=== PATIENT | male | born 1985 | race Caucasian/White ===

== ENCOUNTER 2020-03-30 16:25 | Emergency (ER) | payer MEDICAID ==
[~2020-03-30] VITALS: Ht 177.8 cm; Wt 104.0 kg
[2020-03-30 16:34] VITALS: BP 111/77
--- NOTE | 2020-03-30 16:39 | NUR ---
PT IS WAITING QUIETLY TO BE EVALUATED BY PROVIDER
[2020-03-30] MEDS ORDERED: ondansetron 4mg rapidly disintigrating tab PO ONE (17:05)
[2020-03-30] MEDS ORDERED: sulfamethoxazole/trimethoprim DS (800/160mg) tablet PO ONE (17:05)
[2020-03-30] MEDS ORDERED: buprenorphine/naloxone 8MG-2MG SUBlingual film SL ONE (17:10)
[2020-03-30] MEDS ORDERED: SULF1TAB49 PO (17:12)
--- NOTE | 2020-03-30 17:28 | NUR ---
gave pt sandwich, wash basin to clean self, pt also has info regarding suboxone clinic, where to get a shower etc.
--- NOTE | 2020-03-30 18:00 | NUR ---
PT SAID HE COULD NOT WALK "I HAVE CHRONIC PAIN AND BACK SURGERY", PT IS THEN STOOD UP, PUT SANDALS ON AND AMB WITH STEADY GAIT TO LOBBY, OFFERED PT TAXI RIDE TO [facility], PT REFUSED
== END 2020-03-30 17:31 | disposition home or self-care (01) ==
LOC: ER 16:25
DX: L03.115 Cellulitis of right lower limb (principal); F15.90 Other stimulant use, unspecified, uncomplicated; F11.90 Opioid use, unspecified, uncomplicated; Z72.89 Other problems related to lifestyle; Z79.2 Long term (current) use of antibiotics
CPT/HCPCS: 99283; 99284

== ENCOUNTER 2020-04-24 01:51 | Emergency (ER) | payer MEDICAID ==
[~2020-04-24] VITALS: Ht 177.8 cm; Wt 97.7 kg
[2020-04-24] MEDS ORDERED: normal saline 1000ml 1,000 ML IV ONE (02:10)
[2020-04-24] MEDS ORDERED: ondansetron/PF 4mg/2ml inj IV ONE (02:10)
[2020-04-24] MEDS ORDERED: famotidine/PF 10 mg/ml inj IV ONE (02:10)
[2020-04-24] MEDS ORDERED: pantoprazole 40 MG vial IV ONE (02:10)
[2020-04-24] MEDS ORDERED: normal saline 1000ML IV soln IVB ONE (02:10)
[2020-04-24] MEDS ORDERED: bisacodyl 5mg tablet.DR PO ONE (02:10)
[2020-04-24 02:29] LABS: BASOPHILS # (AUTO) 0.1 X10'3 (0-0.2); BASOPHILS % (AUTO) 0.5 % (0-1); EOSINOPHILS # (AUTO) 0.3 X10'3 (0-0.9); EOSINOPHILS % (AUTO) 2.4 % (0-6); HEMATOCRIT 45.9 % (42.0-52.0); HEMOGLOBIN 15.1 g/dl (14.0-17.9); LYMPHOCYTES # (AUTO) 2.1 X10'3 (1.1-4.8); LYMPHOCYTES % (AUTO) 19.2 % (21-51); MEAN CORPUSCULAR HEMOGLOBIN 29.1 PG (27.0-31.0); MEAN CORPUSCULAR HGB CONC 32.9 g/dL (33.0-36.5); MEAN CORPUSCULAR VOLUME 88.5 FL (78-98); MEAN PLATELET VOLUME 7.3 FL (7.4-10.4); MONOCYTES # (AUTO) 1.1 X10'3 (0-0.9); NEUTROPHILS # (AUTO) 7.6 X10'3 (1.8-7.7); NEUTROPHILS % (AUTO) 67.9 % (42-75); PLATELET COUNT 232 X10'3 (140-440); RED BLOOD COUNT 5.18 X10'6 (4.70-6.10); RED CELL DISTRIBUTION WIDTH 15.6 % (11.5-14.5); WHITE BLOOD COUNT 11.2 X10'3 (4.5-11.0)
[2020-04-24 02:30] LABS: CLARITY,URINE CLEAR (Clear); COLOR,URINE YELLOW (Yellow); GLUCOSE, URINE 100 mg/dl (Neg); KETONES,URINE NEGATIVE (Neg); LEUKOCYTE ESTERASE ,URINE NEGATIVE (Neg); NITRITES, URINE NEGATIVE (Neg); OCCULT BLOOD,URINE NEGATIVE (Neg); PROTEIN,URINE NEGATIVE (Neg)
[2020-04-24 02:32] LABS: UA COLLECTION TYPE CLN CATCH MIDSTREAM
[2020-04-24 02:44] LABS: URINE AMPHETAMINE SCREEN POSITIVE (Neg); URINE BARBITUATE SCREEN NEGATIVE (Neg); URINE BENZODIAZEPINES SCREEN NEGATIVE (Neg); URINE CANNABINOID SCREEN POSITIVE (Neg); URINE COCAINE SCREEN NEGATIVE (Neg); URINE METHADONE SCREEN NEGATIVE (Neg); URINE OPIATE SCREEN NEGATIVE (Neg); URINE PHENCYCLIDINE SCREEN NEGATIVE (Neg)
[2020-04-24 02:45] LABS: ALBUMIN 3.2 G/DL (3.4-5.0); ANION GAP 8 (8-16); BILIRUBIN,TOTAL 0.5 MG/DL (0.1-1.0); BLOOD UREA NITROGEN 10 MG/DL (7-18); BUN/CREATININE RATIO 8.8 (5.4-32.0); CALCIUM 8.1 MG/DL (8.5-10.1); CHLORIDE 103 MMOL/L (99-107); CREATININE 1.13 MG/DL (0.60-1.10); GLUCOSE 153 MG/DL (70-104); POTASSIUM 3.3 MMOL/L (3.5-5.1); SODIUM 136 MMOL/L (135-145); TOTAL CARBON DIOXIDE 25.5 MMOL/L (24-32); TOTAL PROTEIN 7.9 G/DL (6.4-8.2); eGFR 75 ML/MIN
[2020-04-24 02:46] LABS: ALANINE AMINOTRANSFERASE 29 U/L (12-78); ALBUMIN/GLOBULIN RATIO 0.7 (1.1-1.5); ALKALINE PHOSPHATASE 120 IU/L (46-116); ASPARTATE AMINO TRANSFERASE 19 U/L (10-37); LIPASE 261 U/L (73-393)
[2020-04-24 02:50] LABS: ETHANOL < 0.010 GM/DL (0.0-0.010)
[2020-04-24] MEDS ORDERED: buprenorphine/naloxone 8MG-2MG SUBlingual film SL ONE (02:50)
[2020-04-24] MEDS ORDERED: ONDA8TAB6 PO (02:57)
[2020-04-24] MEDS ORDERED: BISA-78 PO (03:02)
[2020-04-24] MEDS ORDERED: proCHLORperazine 10 MG/2 ml inj IV PRN (03:10)
[2020-04-24] MEDS ORDERED: ketorolac trometh. 30mg/ml inj. IV ONE (03:10)
[2020-04-24] MEDS ORDERED: acetaminophen 325mg tablet PO ONE (03:10)
--- NOTE | 2020-04-24 03:10 | NUR ---
PT GETTING PREPARED FOR DISCHARGE, PT REPORT[facility] 9/10 HEADACHE. [facility] ORDER RECEIVED FOR COMPAZINE 5MG IV X1 DOSE, TORADOL 15MG IV X1 DOSE, AND TYLENOL 650MG X1 DOSE. ORDERS PLACED AND COMPLETED.
[2020-04-24 03:44] VITALS: BP 109/65
== END 2020-04-24 03:27 | disposition home or self-care (01) ==
LOC: ER 01:52
DX: F11.23 Opioid dependence with withdrawal (principal); R11.2 Nausea with vomiting, unspecified; F15.90 Other stimulant use, unspecified, uncomplicated; Z72.89 Other problems related to lifestyle; Z98.890 Other specified postprocedural states
CPT/HCPCS: 36415; 80053; 80305; 80320; 81003; 83690; 85025; 96361; 96374; 96375; 99284; C9113; J0780; J1885; J2405; J3490; J7030

== ENCOUNTER 2020-04-30 12:58 | Emergency (ER) | payer MEDICAID ==
[~2020-04-30] VITALS: Ht 177.8 cm; Wt 88.3 kg
[~2020-04-30 12:58] MED LIST: BISA-78 PO; ONDA8TAB6 PO
[2020-04-30 13:11] VITALS: BP 109/79
--- NOTE | 2020-04-30 13:21 | NUR ---
Per security and registration, patient "flipped everyone off, cursing as security follow him out of the ED and out of the parking lot". Prior to this patient was laying on the floor, and bobbin winder Nuha stated that she asked him to not lay on the [facility] floor. Patient stated that we don't care about him and that he goes from [facility] to here. He stated that he waited for 4 hours at [facility] and they didn't do anything. Patient stated that he will be waiting for 4 hours here. Nuha stated that he would not be waiting that long and that we would get him into a room as soon as one was available. Patient then continued to state that we don't care about him. Patient was left in the lobby sitting in chair with security standing by.
== END 2020-04-30 13:26 | disposition left against medical advice (07) ==
LOC: ER 12:59
DX: S01.01XA Laceration without foreign body of scalp, initial encounter (principal); Z53.21 Procedure and treatment not carried out due to patient leaving prior to being seen by health care provider; Y04.2XXA Assault by strike against or bumped into by another person, initial encounter; Y93.89 Activity, other specified; Y92.89 Other specified places as the place of occurrence of the external cause; Y99.8 Other external cause status